=== PATIENT | male | born 1980 | race Caucasian/White ===

== ENCOUNTER 2018-10-30 05:45 | Emergency (ER) | payer BC ==
[~2018-10-30] VITALS: Ht 180.3 cm; Wt 99.8 kg
--- NOTE | 2018-10-30 06:14 | PHYS DOC ---
Past Medical History Past Medical History: Anxiety, Hypertension Smoking: Cigarettes Alcohol Use: Heavy Drug Use: None Adult General Chief Complaint Chief Complaint: ABDOMINAL PAIN HPI HPI Patient is a 38 year old male who presents with upper abdominal pain that started at approximately midnight. Patient describes it as cramping but constant. Nothing seems to make it better or worse. Patient has had 4 bowel movements that he reports R a smaller caliber than normal. No blood in the stool. There is been constant nausea but no vomiting. Patient does report drinking 2 shots of fireball, approximately 100 mL of this liquor as well as 2 glasses of wine last night. Reports that this is less than usual for him. Denies any fever. Denies any sick contacts. No other new foods, and no travel.[] . Review of Systems Review of Systems Constitutional: Denies fever or chills [] Eyes: Denies change in visual acuity, redness, or eye pain [] HENT: Denies nasal congestion or sore throat [] Respiratory: Denies cough or shortness of breath [] Cardiovascular: No chest pain or palpitations[] GI: See history of present illness [] : Denies dysuria or hematuria [] Musculoskeletal: Denies back pain or joint pain [] Integument: Denies rash or skin lesions [] Neurologic: Denies headache, focal weakness or sensory changes [] Endocrine: Denies polyuria or polydipsia [] All other systems were reviewed and found to be within normal limits, except as documented in this note. Current Medications Current Medications Current Medications Medications (Trade) Dose Ordered Sig/Tre Start Time Stop Time Status Last Admin Dose Admin Dicyclomine HCl (Bentyl) 10 mg 1X ONCE 10/30/18 08:45 10/30/18 08:46 DC 10/30/18 08:45 10 MG Hyoscyamine (Anaspaz) 0.125 mg ONCE ONCE 10/30/18 06:30 10/30/18 06:31 DC 10/30/18 06:47 0.125 MG Info (CONTRAST GIVEN -- Rx MONITORING) 1 each PRN DAILY PRN 10/30/18 07:45 11/01/18 07:44 Iohexol (Omnipaque 300 Mg/ml) 75 ml 1X ONCE 10/30/18 07:45 10/30/18 07:46 DC 10/30/18 07:37 75 ML Multi-Ingredient Mouthwash/Gargle (Gi Cocktail) 20 ml 1X ONCE 10/30/18 08:45 10/30/18 08:46 DC 10/30/18 08:44 20 ML Pantoprazole Sodium (PROTONIX VIAL for IV PUSH) 40 mg 1X ONCE 10/30/18 08:45 10/30/18 08:46 DC 10/30/18 08:46 40 MG Prochlorperazine Edisylate (Compazine) 5 mg 1X ONCE 10/30/18 06:30 10/30/18 06:31 DC 10/30/18 06:47 5 MG Sodium Chloride 1,000 ml @ 1,000 mls/hr Q1H 10/30/18 06:30 10/30/18 07:29 DC 10/30/18 06:47 1,000 MLS/HR Allergies Allergies Allergies Coded Allergies Type Severity Reaction Last Updated Verified No Known Drug Allergies 10/30/18 No Physical Exam Physical Exam Constitutional: Well developed, well nourished, no acute distress, non-toxic appearance. [] HENT: Normocephalic, atraumatic, bilateral external ears normal, oropharynx moist, no oral exudates, nose normal. [] Eyes: PERRLA, EOMI, conjunctiva normal, no discharge. [] Neck: Normal range of motion, no tenderness, supple, no stridor. [] Cardiovascular:Heart rate regular rhythm, no murmur [] Lungs & Thorax: Bilateral breath sounds clear to auscultation [] Abdomen: Bowel sounds normal, soft, supraumbilical tenderness, no rebound, no guarding, no rigidity, sits up and lays back without any difficulty, no masses, no pulsatile masses. [] Skin: Warm, dry, no erythema, no rash. [] Back: No tenderness, no CVA tenderness. [] Extremities: No tenderness, no cyanosis, no clubbing, ROM intact, no edema. [] Neurologic: Alert and oriented X 3, normal motor function, normal sensory function, no focal deficits noted. [] Psychologic: Affect normal, judgement normal, mood normal. [] Current Patient Data Vital Signs Vital Signs Date Time Temp Pulse Resp B/P (MAP) Pulse Ox O2 Delivery O2 Flow Rate FiO2 10/30/18 08:00 78 13 145/94 (111) 98 Room Air 10/30/18 05:50 97.6 97.6 Lab Values Laboratory Tests Test 10/30/18 06:14 10/30/18 06:30 10/30/18 08:05 Influenza Type A Antigen Negative (NEGATIVE) Influenza Type B Antigen Negative (NEGATIVE) White Blood Count 10.9 x10^3/uL (4.0-11.0) Red Blood Count 5.21 x10^6/uL (4.30-5.70) Hemoglobin 15.2 g/dL (13.0-17.5) Hematocrit 44.7 % (39.0-53.0) Mean Corpuscular Volume 86 fL (79-100) Mean Corpuscular Hemoglobin 29 pg (25-35) Mean Corpuscular Hemoglobin Concent 34 g/dL (31-37) Red Cell Distribution Width 12.8 % (11.5-14.5) Platelet Count 245 x10^3/uL (140-400) Neutrophils (%) (Auto) 85 % (31-73) H Lymphocytes (%) (Auto) 10 % (24-48) L Monocytes (%) (Auto) 4 % (0-9) Eosinophils (%) (Auto) 0 % (0-3) Basophils (%) (Auto) 0 % (0-3) Neutrophils # (Auto) 9.2 x10^3uL (1.8-7.7) H Lymphocytes # (Auto) 1.1 x10^3/uL (1.0-4.8) Monocytes # (Auto) 0.5 x10^3/uL (0.0-1.1) Eosinophils # (Auto) 0.0 x10^3/uL (0.0-0.7) Basophils # (Auto) 0.0 x10^3/uL (0.0-0.2) Prothrombin Time 11.8 SEC (11.7-14.0) Prothrombin Time INR 0.9 (0.8-1.1) Sodium Level 141 mmol/L (136-145) Potassium Level 3.7 mmol/L (3.5-5.1) Chloride Level 103 mmol/L (98-107) Carbon Dioxide Level 27 mmol/L (21-32) Anion Gap 11 (6-14) Blood Urea Nitrogen 14 mg/dL (8-26) Creatinine 0.8 mg/dL (0.7-1.3) Estimated GFR (Cockcroft-Gault) 107.6 BUN/Creatinine Ratio 18 (6-20) Glucose Level 121 mg/dL (70-99) H Calcium Level 9.0 mg/dL (8.5-10.1) Total Bilirubin 1.6 mg/dL (0.2-1.0) H Aspartate Amino Transferase (AST) 240 U/L (15-37) H Alanine Aminotransferase (ALT) 215 U/L (16-63) H Alkaline Phosphatase 88 U/L (46-116) Total Protein 7.4 g/dL (6.4-8.2) Albumin 4.1 g/dL (3.4-5.0) Albumin/Globulin Ratio 1.2 (1.0-1.7) Lipase 178 U/L (73-393) Urine Collection Type Void Urine Color Yellow Urine Clarity Clear Urine pH 8.5 Urine Specific [place] >=1.030 Urine Protein Negative mg/dL (NEG-TRACE) Urine Glucose (UA) Negative mg/dL (NEG) Urine Ketones (Stick) Negative mg/dL (NEG) Urine Blood Negative (NEG) Urine Nitrite Negative (NEG) Urine Bilirubin Negative (NEG) Urine Urobilinogen Dipstick 1.0 mg/dL (0.2 mg/dL) Urine Leukocyte Esterase Negative (NEG) Urine RBC 0 /HPF (0-2) Urine WBC Occ /HPF (0-4) Urine Squamous Epithelial Cells Occ /LPF Urine Amorphous Sediment Present /HPF Urine Bacteria Few /HPF (0-FEW) Urine Mucus Mod /LPF Laboratory Tests 10/30/18 06:30 Laboratory Tests 10/30/18 06:30 EKG EKG [] Radiology/Procedures Radiology/Procedures CT Abdomen with contrast: Findings: Liver: There is a small cyst in the right lobe of the liver Spleen: Unremarkable Pancreas: Unremarkable Adrenal Glands: Unremarkable Kidneys: Unremarkable There is no mass or lymphadenopathy. There is no free air. There is no free fluid. The colon is collapsed and not well evaluated. Impression CT Pelvis with Contrast: Findings: The urinary bladder appears normal. There is no free fluid. There is no lymphadenopathy. The appendix is normal. There is a short segment of moderate wall thickening of the rectosigmoid. Impression: Short segment of moderate wall thickening of the rectosigmoid. This could be inflammatory or infectious. An adenocarcinoma is possible. Recommend follow-up sigmoidoscopy.[] Course & Med Decision Making Course & Med Decision Making Pertinent Labs and Imaging studies reviewed. (See chart for details) ED course: Patient arrived, was placed in bed, and tolerated exam well. He did achieve pain relief with the initial medications however it did return and was given additional medicine to help with the discomfort. Patient was transported to and from [place] with any complications. After the return of the laboratory and imaging findings, these were discussed with the patient who voiced understanding. He was discharged in improved condition. Medical decision making: There does not appear to be pancreatitis, obstruction, perforation, appendicitis nor cholecystitis. No evidence of a need for urgent surgical intervention nor admission at this time.[] Dragon Disclaimer Dragon Disclaimer This electronic medical record was generated, in whole or in part, using a voice recognition dictation system. Departure Departure Impression: Primary Impression: Abdominal pain Disposition: HOME, SELF-CARE Condition: GOOD Patient Instructions: Abdominal Pain Additional Instructions: Your CT scan showed: Short segment of moderate wall thickening of the rectosigmoid colon, which is nowhere near where your hurting today. This does require follow-up and possibly a sigmoid or colonoscopy. Follow-up with your regular doctor in 2 days, given your upper abdominal discomfort they may want to schedule you for an EGD-an Esophago Gastro Duodenoscopy. Return to the ER if worsening discomfort, unable to tolerate liquids, or any other concerns. Scripts Metoclopramide Hcl (REGLAN) 10 Mg Tablet 10 MG PO QIDACHS, #30 TAB 0 Refills Prov: AMANDA CAROLINA DO 10/30/18 Lansoprazole (PREVACID) 15 Mg Capsule.dr 15 MG PO DAILY, #20 CAP Prov: AMANDA CAROLINA DO 10/30/18 Hyoscyamine Sulfate (LEVSIN) 0.125 Mg Tablet 0.125 MG PO QID, #30 TAB Prov: AMANDA CAROLINA DO 10/30/18 Problem Qualifiers Primary Impression: Abdominal pain Abdominal location: upper abdomen, unspecified Qualified Codes: R10.10 - Upper abdominal pain, unspecified AMANDA CAROLINA DO Oct 30, 2018 06:14
[2018-10-30] MEDS ORDERED: IV NORMAL SALINE 1000ML BAG 1,000 ML IV SCH (06:30)
[2018-10-30] MEDS ORDERED: PROCHLORPERAZINE 10 MG/2 ML VIAL. IV ONE (06:30)
[2018-10-30] MEDS ORDERED: HYOSCYAMINE 0.125 MG TAB.RAPDIS PO ONE (06:30)
[2018-10-30 06:50] LABS: PROTHROMBIN TIME PATIENT 11.8 SEC (11.7-14.0)
[2018-10-30 06:51] LABS: INFLUENZA A PATIENT NEGATIVE (NEGATIVE); INFLUENZA B PATIENT NEGATIVE (NEGATIVE)
[2018-10-30 06:52] LABS: BASO % 0 % (0-3); EOS % 0 % (0-3); HEMATOCRIT 44.7 % (39.0-53.0); HEMOGLOBIN 15.2 g/dL (13.0-17.5); LYMPH # 1.1 x10^3/uL (1.0-4.8); LYMPH % 10 % (24-48); MEAN CORPUSCULAR HEMOGLOBIN 29 pg (25-35); MEAN CORPUSCULAR HGB CONC 34 g/dL (31-37); MEAN CORPUSCULAR VOLUME 86 fL (79-100); MONO # 0.5 x10^3/uL (0.0-1.1); MONO % 4 % (0-9); NEUT # 9.2 x10^3uL (1.8-7.7); NEUT % 85 % (31-73); PLATELET COUNT 245 x10^3/uL (140-400); RED BLOOD COUNT 5.21 x10^6/uL (4.30-5.70); RED CELL DISTRIBUTION WIDTH 12.8 % (11.5-14.5); WHITE BLOOD COUNT 10.9 x10^3/uL (4.0-11.0)
[2018-10-30 06:56] LABS: CREATININE 0.8 mg/dL (0.7-1.3); GFR 107.6; POTASSIUM 3.7 mmol/L (3.5-5.1)
[2018-10-30 07:02] LABS: ALBUMIN 4.1 g/dL (3.4-5.0); ALBUMIN/GLOBULIN RATIO 1.2 (1.0-1.7); TOTAL BILIRUBIN 1.6 mg/dL (0.2-1.0); TOTAL PROTEIN 7.4 g/dL (6.4-8.2)
[2018-10-30] MEDS ORDERED: CONTRAST GIVEN. MC PRN (07:45)
[2018-10-30] MEDS ORDERED: IOHEXOL 300 MG/ML 100ML VIAL. IV ONE (07:45)
--- NOTE | 2018-10-30 07:54 | RAD ---
CT SCAN OF THE ABDOMEN AND PELVIS WITH IV CONTRAST. History: Abdominal pain Comparison:None. Procedure: Contiguous axial images of the abdomen and pelvis were performed after the administration of 75 cc of Omni 300 IV contrast and without oral contrast. CT Abdomen with contrast: Findings: Liver: There is a small cyst in the right lobe of the liver Spleen: Unremarkable Pancreas: Unremarkable Adrenal Glands: Unremarkable Kidneys: Unremarkable There is no mass or lymphadenopathy. There is no free air. There is no free fluid. The colon is collapsed and not well evaluated. Impression CT Pelvis with Contrast: Findings: The urinary bladder appears normal. There is no free fluid. There is no lymphadenopathy. The appendix is normal. There is a short segment of moderate wall thickening of the rectosigmoid. Impression: Short segment of moderate wall thickening of the rectosigmoid. This could be inflammatory or infectious. An adenocarcinoma is possible. Recommend follow-up sigmoidoscopy. PQRS Compliance Statement: One or more of the following individualized dose reduction techniques were utilized for this examination: 1. Automated exposure control 2. Adjustment of the mA and/or kV according to patient size 3. Use of iterative reconstruction technique Electronically signed by: Casey Cordero III, MD (10/30/2018 7:51 AM) [facility]
[2018-10-30 08:00] VITALS: BP 145/94
[2018-10-30 08:20] LABS: BILIRUBIN,URINE NEGATIVE (NEG); CLARITY,URINE CLEAR; COLOR,URINE YELLOW; NITRITE,URINE NEGATIVE (NEG); PH,URINE 8.5; PROTEIN,URINE NEGATIVE (NEG-TRACE)
[2018-10-30 08:29] LABS: AMORPHOUS SEDIMENT,UR PRESENT /HPF; BACTERIA,URINE FEW /HPF (0-FEW); RBC,URINE 0 /HPF (0-2); SQUAMOUS EPITHELIAL CELL,UR OCC /LPF; WBC,URINE OCC /HPF (0-4)
[2018-10-30] MEDS ORDERED: PANTOPRAZOLE IV PUSH 40 MG VIAL. IVP ONE (08:45)
[2018-10-30] MEDS ORDERED: LIDO:MAALOX 1:1 20 ML SINGLE DOSE. SWSW ONE (08:45)
[2018-10-30] MEDS ORDERED: DICYCLOMINE 20 MG/2 ML AMPUL. IM ONE (08:45)
[2018-10-30] MEDS ORDERED: HYOS0.1264 PO (09:03)
[2018-10-30] MEDS ORDERED: METO10TA81 PO (09:03)
[2018-10-30] MEDS ORDERED: LANS15CA78 PO (09:03)
[2018-10-30] MEDS ORDERED: IOHEXOL 300 MG/ML 100ML VIAL. ONE (12:00)
== END 2018-10-30 09:57 | disposition home or self-care (01) ==
LOC: ER 05:45
DX: R10.10 Upper abdominal pain, unspecified (principal); R10.33 Periumbilical pain; R11.0 Nausea; F41.9 Anxiety disorder, unspecified; I10 Essential (primary) hypertension; F17.210 Nicotine dependence, cigarettes, uncomplicated; F10.20 Alcohol dependence, uncomplicated; Y90.9 Presence of alcohol in blood, level not specified
CPT/HCPCS: 36415; 74177; 80053; 81001; 83690; 85025; 85610; 87804; 96372; 96374; 96375; 99284; C9113; J0500; J0780; J7030; Q9967

== ENCOUNTER → 2021-11-25 | Outpatient (CLI) | payer BC ==
[~2021-11-25] MED LIST: CONTRAST GIVEN. MC PRN; HYOS0.1264 PO; IOHEXOL 240 MG/ML 50ML VIAL. PO ONE; IOHEXOL 300 MG/ML 100ML VIAL. IV ONE; LANS15CA73 PO; METO10TA81 PO
--- NOTE | 2021-11-25 18:23 | RAD ---
EXAM: CT ABDOMEN/PELVIS WITH CONTRAST. HISTORY: Right lower quadrant pain. TECHNIQUE: Computed tomography of the abdomen and pelvis was performed after the intravenous administ ration of iodinated contrast. One or more of the following individualized dose reduction techniques w ere utilized for this examination: 1. Automated exposure control. 2. Adjustment of the mA and/or kV according to patient size. 3. Use of iterative reconstruction technique. COMPARISON: 10/30/2018. FINDINGS: Lung windows through the visualized portions of the bases reveal mild atelectasis. Bone win dows reveal no suspicious lesions. A subcutaneous nodule along the left lower back measures 14 mm and suggests a sebaceous cyst or other cutaneous lesion. Gallstones are noted. A benign cyst in the right hepatic lobe measures 13 mm. The spleen, pancreas, a drenal glands and kidneys are unremarkable. There are no pathologically enlarged lymph nodes. The appendix is not inflamed. There is no small bowel obstruction. IMPRESSION: 1. Cholelithiasis. No acute process is identified. Electronically signed by: Viktoria Jean MD (11/25/2021 6:20 PM) [facility]
== END ==
LOC: CT 15:12
PROVIDERS: ATTEND Family Medicine
DX: K80.20 Calculus of gallbladder without cholecystitis without obstruction (principal); J98.11 Atelectasis; K76.89 Other specified diseases of liver; R22.2 Localized swelling, mass and lump, trunk
CPT/HCPCS: 74177; Q9966; Q9967